=== PATIENT | female | born 1985 | race Caucasian/White ===

== ENCOUNTER → 2017-06-10 | Emergency (ER) | payer MEDICAID ==
[~2017-06-10] MED LIST: BUSP10TA90 PO; PAR20T GT
== END | disposition left against medical advice (07) ==
LOC: ER 02:10 → EDBD 02:10
DX: Z04.6 Encounter for general psychiatric examination, requested by authority (principal); Z53.21 Procedure and treatment not carried out due to patient leaving prior to being seen by health care provider